=== PATIENT | female | born 1980 | race Hispanic/Latino ===

== ENCOUNTER 2018-04-02 10:56 | Emergency (ER) | payer SELFPAY ==
[~2018-04-02 10:56] MED LIST: HYDR-2132 PO
[2018-04-02] MEDS ORDERED: KETOROLAC TROMETHAMINE 30MG/ML ONE (11:56)
== END 2018-04-02 13:02 | disposition home or self-care (01) ==
LOC: EDH 10:56
DX: M79.631 Pain in right forearm (principal); Z88.6 Allergy status to analgesic agent; Z98.51 Tubal ligation status; Z98.890 Other specified postprocedural states; X50.0XXA Overexertion from strenuous movement or load, initial encounter; Y93.89 Activity, other specified; Y92.89 Other specified places as the place of occurrence of the external cause; Y99.8 Other external cause status
CPT/HCPCS: 29125; 73090; 81025; 96372; 99285; J1885

== ENCOUNTER 2018-12-12 20:38 | Inpatient (IN) | payer MEDICAID, OTHER ==
[~2018-12-12] VITALS: Ht 160 cm; Wt 105.2 kg
[2018-12-12] MEDS ORDERED: KETOROLAC TROMETHAMINE 30MG/ML ONE (22:20)
[2018-12-12] MEDS ORDERED: ONDANSETRON HCL 4 MG/2 ML VIAL ONE (22:20)
[2018-12-12] MEDS ORDERED: SODIUM CHLORIDE 0.9% 1000ML 1,000 ML IV ONE (22:20)
[2018-12-12 22:57] LABS: BASOPHILS % (AUTO) 0.3 % (0.0-5.0); HEMATOCRIT 37.3 % (36-48); LYMPHOCYTES % (AUTO) 5.3 % (21.0-51.0); MEAN CORPUSCULAR HEMOGLOBIN 25.8 pg (27.0-33.0); MEAN CORPUSCULAR HGB CONC 31.8 g/dL (32.0-36.0); MONOCYTES % (AUTO) 6.4 % (3.0-13.0); PLATELET COUNT (AUTO) 357 K/uL (130-400); RED CELL DISTRIBUTION WIDTH 15.2 % (11.0-15.5); WHITE BLOOD COUNT (AUTO) 16.7 K/uL (4.8-10.8)
[2018-12-12 23:01] LABS: APPEARANCE,URINE Clear (CLEAR); BILIRUBIN,URINE Negative (NEGATIVE); COLOR,URINE Yellow (YELLOW); GLUCOSE, URINE (UA) Negative (NEGATIVE); KETONES,URINE Negative (NEGATIVE); LEUKOCYTE ESTERASE ,URINE Negative (NEGATIVE); NITRATE,URINE Negative (NEGATIVE); OCCULT BLOOD,URINE Negative (NEGATIVE); PROTEIN,URINE Negative (NEGATIVE)
[2018-12-12 23:05] LABS: CREATININE 0.6 mg/dL (0.5-1.5); HCG,QUAL RESULT NEGATIVE (NEGATIVE); POTASSIUM 3.6 mmol/L (3.5-5.1)
[2018-12-12 23:09] LABS: ALBUMIN 3.4 g/dL (3.5-5.0); BILIRUBIN,TOTAL 0.3 mg/dL (0.2-1.0); TOTAL PROTEIN, SERUM 7.5 g/dL (6.0-8.3)
[2018-12-13] MEDS ORDERED: ONDANSETRON HCL 4 MG/2 ML VIAL ONE (01:05)
[2018-12-13] MEDS ORDERED: MORPHINE SULFATE 4 MG/1ML SYG ONE (01:05)
[2018-12-13] MEDS ORDERED: ACETAMINOPHEN 325 MG TAB ONE (01:27)
[2018-12-13] MEDS: SODIUM CHLORIDE 0.9% 1000ML 1,000 ML IV SCH ×2 (01:51→12:35)
[2018-12-13] MEDS ORDERED: ACETAMINOPHEN 325 MG TAB PO PRN (02:00)
[2018-12-13] MEDS ORDERED: MORPHINE SULFATE 2 MG/ML 1ML SYG IV PRN (02:00)
[2018-12-13] MEDS ORDERED: ONDANSETRON HCL 4 MG/2 ML VIAL IV PRN (02:00)
[2018-12-13] MEDS ORDERED: SODIUM CHLORIDE 0.9% 1000ML 1,000 ML IV ONE (02:22)
[2018-12-13] MEDS ORDERED: ZOSYN 3.375GM+NS 50ML 50 ML IV ONE (02:23)
[2018-12-13] MEDS ORDERED: LIDOCAINE HCL 2% JELLY 5 ML ONE (03:30)
[2018-12-13 05:30] VITALS: BP 129/73
--- NOTE | 2018-12-13 05:39 | NUR ---
Admission note: Received pt. per wheelchair. AOx3. Can amb indep. Has NGT tube cypriot 16 attached to low intermittent suction for decompression draining a a small amount of whitish to greenish fluid. Fully awake and responsive , but complaining of abd pain. Morphine 2mg IV prn for pain given as ordered. Has an IV site of 20 g to LH with IV of 1L NS at 100 ml/hr - intact and patency checked. Pt. oriented to room and used of call light. Policies and procedures explained. Verbalized understanding.Assessment done. VS checked and recorded. Orders carried out. To consult Dr. Garcia in [place]. Monitored and observed for any unusualities. Cared for and needs attended. Endorsed to next shift accordingly.
[2018-12-13 08:00] VITALS: BP 138/88
[2018-12-13] MEDS: FAMOTIDINE/PF 20 MG/2 ML VIAL IV SCH ×2 (08:49→21:01)
[2018-12-13] MEDS: ZOSYN 3.375GM+NS 50ML 50 ML IV SCH ×2 (08:53→18:43)
[2018-12-13] MEDS ORDERED: ENOXAPARIN SODIUM 30 MG/0.3 ML SQ SCH (09:00)
[2018-12-13 11:00] VITALS: BP 130/89
[2018-12-13] MEDS: KETOROLAC TROMETHAMINE 30MG/ML IM PRN (12:04)
--- NOTE | 2018-12-13 13:00 | NUR ---
KALLIE ESTRADA VISITED WITH PATIENT. POC DISCUSSED. NO NEW ORDERS AT THIS TIME. MEDICATED PER MARS FOR COMPLAINTS OF ABD PAIN. TOLERATING IVF WELL. NO NAUSEA OR VOMITING NOTED. UP AD CORONA. NGT IN PLACE. NO SIGNS OF DISTRESS NOTED AT THIS TIME. CALL LIGHT WITHIN REACH. WILL CONTINUE TO BE OBSERVED. Addendum: 12/13/18 at 1320 by THIERNO FISHER RN RN Amended: Links added.
[2018-12-13] MEDS: MORPHINE SULFATE 2 MG/ML 1ML SYG IV PRN ×2 (13:56→21:02)
[2018-12-13] MEDS ORDERED: PHENOL 177 ML BOTTLE PO PRN (14:00)
[2018-12-13 16:00] VITALS: BP 137/87
--- NOTE | 2018-12-13 16:00 | NUR ---
MD MEETA BATRES VISITED WITH PATIENT. POC DISCUSSED. NEW ORDERS RECEIVED AND CARRIED OUT. PATIENT AWARE. NO QUESTIONS OR CONCERNS VOICED AT THIS TIME. VITALS STABLE.A FEBRILE. BOLUS GIVEN PER MD ORDERS. UP AD CORONA. CALL LIGHT WITHIN REACH. WILL CONTINUE TO BE OBSERVED. Addendum: 12/13/18 at 1911 by THIERNO FISHER RN RN Amended: Links added.
[2018-12-13] MEDS ORDERED: LACTATED RINGERS 1000ML IV SCH (16:15)
[2018-12-13] MEDS: LACTATED RINGERS 1000ML 1,000 ML IV SCH (18:36)
[2018-12-13 20:08] VITALS: BP 140/93
[2018-12-14] VITALS: BP 136/64
[2018-12-14] MEDS: ZOSYN 3.375GM+NS 50ML 50 ML IV SCH ×3 (01:39→17:36)
[2018-12-14] MEDS: MORPHINE SULFATE 2 MG/ML 1ML SYG IV PRN ×3 (01:42→23:21)
[2018-12-14] MEDS: LACTATED RINGERS 1000ML 1,000 ML IV SCH ×4 (01:42→17:36)
[2018-12-14 04:00] VITALS: BP 142/62
[2018-12-14 08:00] VITALS: BP 140/87
[2018-12-14] MEDS: FAMOTIDINE/PF 20 MG/2 ML VIAL IV SCH ×2 (09:25→20:27)
[2018-12-14] MEDS ORDERED: MORPHINE SULFATE 4 MG/1ML SYG ONE (09:27)
[2018-12-14 11:00] VITALS: BP 132/96
[2018-12-14 16:00] VITALS: BP 147/96
[2018-12-14 19:20] VITALS: BP 140/88
[2018-12-15] VITALS (7 sets, daily range): BP systolic 124–150; BP diastolic 65–101
[2018-12-15] MEDS: KETOROLAC TROMETHAMINE 30MG/ML IM PRN ×2 (01:48→11:05)
[2018-12-15] MEDS: LACTATED RINGERS 1000ML 1,000 ML IV SCH ×4 (01:48→20:06)
[2018-12-15] MEDS: ZOSYN 3.375GM+NS 50ML 50 ML IV SCH ×3 (01:48→18:58)
[2018-12-15] MEDS: MORPHINE SULFATE 2 MG/ML 1ML SYG IV PRN ×4 (03:36→22:48)
[2018-12-15 04:34] LABS: HEMATOCRIT 33.3 % (36-48); MEAN CORPUSCULAR HEMOGLOBIN 26.1 pg (27.0-33.0); MEAN CORPUSCULAR HGB CONC 32.5 g/dL (32.0-36.0); MEAN CORPUSCULAR VOLUME 80.2 fL (79-99); PLATELET COUNT (AUTO) 311 K/uL (130-400); RED BLOOD CELL COUNT(AUTO) 4.15 MIL/uL (4.00-5.50); RED CELL DISTRIBUTION WIDTH 15.3 % (11.0-15.5); WHITE BLOOD COUNT (AUTO) 9.6 K/uL (4.8-10.8)
[2018-12-15 04:42] LABS: CREATININE 0.7 mg/dL (0.5-1.5); POTASSIUM 3.7 mmol/L (3.5-5.1)
[2018-12-15] MEDS: FAMOTIDINE/PF 20 MG/2 ML VIAL IV SCH (11:05)
[2018-12-15] MEDS: ENOXAPARIN SODIUM 30 MG/0.3 ML SQ SCH (11:06)
[2018-12-15] MEDS: FAMOTIDINE 20MG TAB 20 MG TAB PO SCH (20:06)
[2018-12-16] MEDS: ZOSYN 3.375GM+NS 50ML 50 ML IV SCH ×2 (02:07→10:17)
[2018-12-16 03:42] VITALS: BP 133/92
[2018-12-16 04:28] LABS: HEMATOCRIT 34.3 % (36-48); MEAN CORPUSCULAR HEMOGLOBIN 25.9 pg (27.0-33.0); MEAN CORPUSCULAR HGB CONC 32.5 g/dL (32.0-36.0); MEAN CORPUSCULAR VOLUME 79.9 fL (79-99); NUCLEATED RED BLOOD CELLS 0.1 % (0.0-0.19); PLATELET COUNT (AUTO) 314 K/uL (130-400); RED CELL DISTRIBUTION WIDTH 15.1 % (11.0-15.5); WHITE BLOOD COUNT (AUTO) 8.3 K/uL (4.8-10.8)
[2018-12-16 04:41] LABS: CREATININE 0.6 mg/dL (0.5-1.5); POTASSIUM 3.3 mmol/L (3.5-5.1)
[2018-12-16] MEDS: MORPHINE SULFATE 2 MG/ML 1ML SYG IV PRN (05:20)
[2018-12-16 07:30] VITALS: BP 131/76
[2018-12-16] MEDS ORDERED: POTASSIUM CHLORIDE 10% ELIXIR 20 MEQ/15 ML UDCUP PO PRN (08:15)
[2018-12-16] MEDS ORDERED: LIDOCAINE HCL-MPF 1% 2ML VIAL IVP PRN (08:15)
[2018-12-16] MEDS ORDERED: POTASSIUM CHLORIDE 20MEQ/100ML 100 ML IV PRN (08:15)
[2018-12-16] MEDS: ENOXAPARIN SODIUM 30 MG/0.3 ML SQ SCH (10:16)
[2018-12-16] MEDS: FAMOTIDINE 20MG TAB 20 MG TAB PO SCH (10:16)
[2018-12-16] MEDS: LACTATED RINGERS 1000ML 1,000 ML IV SCH (10:19)
[2018-12-16] MEDS: KETOROLAC TROMETHAMINE 30MG/ML IM PRN (10:30)
[2018-12-16] MEDS: POTASSIUM CHLORIDE 20 MEQ ERTAB PO PRN ×3 (10:32→16:15)
[2018-12-16 10:37] VITALS: BP 130/71
== END 2018-12-16 16:35 | disposition home or self-care (01) | DRG 389 ==
LOC: EDH 20:38 → EDHIP 20:39 → OBSVTOIN 20:39 → 4BH 12-13 05:43
PROVIDERS: ADMIT Internal Medicine; ATTEND Internal Medicine
PROC: 0D9670Z Drainage of Stomach with Drainage Device, Via Natural or Artificial Opening (ICD-10-PCS; principal; 2018-12-12)
DX: K56.609 Unspecified intestinal obstruction, unspecified as to partial versus complete obstruction (principal); Z68.41 Body mass index [BMI] 40.0-44.9, adult; E66.9 Obesity, unspecified; M19.90 Unspecified osteoarthritis, unspecified site; K52.9 Noninfective gastroenteritis and colitis, unspecified; Z82.0 Family history of epilepsy and other diseases of the nervous system; Z82.3 Family history of stroke; Z82.49 Family history of ischemic heart disease and other diseases of the circulatory system; Z82.5 Family history of asthma and other chronic lower respiratory diseases; Z83.3 Family history of diabetes mellitus
CPT/HCPCS: 36415; 74018; 74177; 80048; 80053; 81003; 81025; 83690; 85025; 85027; 87046; 87177; 87804; G0378; J1650; J1885; J2270; J2405; J2543; J3490; J7030; J7120

== ENCOUNTER 2019-05-14 19:46 | Emergency (ER) | payer MEDICAID ==
[2019-05-14 20:32] LABS: APPEARANCE,URINE Clear (CLEAR); BILIRUBIN,URINE Negative (NEGATIVE); COLOR,URINE Yellow (YELLOW); GLUCOSE, URINE (UA) Negative (NEGATIVE); KETONES,URINE Negative (NEGATIVE); LEUKOCYTE ESTERASE ,URINE Negative (NEGATIVE); NITRATE,URINE Negative (NEGATIVE); OCCULT BLOOD,URINE Negative (NEGATIVE); PH,URINE 6.5 (5.0-8.0); PROTEIN,URINE Negative (NEGATIVE)
[2019-05-14] MEDS ORDERED: METOCLOPRAMIDE 10 MG/2 ML VIAL ONE (20:33)
[2019-05-14] MEDS ORDERED: DiphenhydrAMINE HCL 50 MG/ML VIAL ONE (20:33)
[2019-05-14] MEDS ORDERED: ONDANSETRON HCL 4 MG/2 ML VIAL ONE (20:34)
[2019-05-14] MEDS ORDERED: SODIUM CHLORIDE 0.9% 1000ML 1,000 ML IV ONE (20:34)
[2019-05-14 20:36] LABS: HCG,QUAL RESULT NEGATIVE (NEGATIVE)
[2019-05-14] MEDS ORDERED: KETOROLAC TROMETHAMINE 30MG/ML ONE (20:43)
== END 2019-05-14 21:36 | disposition home or self-care (01) ==
LOC: EDH 19:46
DX: G43.009 Migraine without aura, not intractable, without status migrainosus (principal); F32.9 Major depressive disorder, single episode, unspecified; F41.9 Anxiety disorder, unspecified; Z98.890 Other specified postprocedural states; Z98.51 Tubal ligation status; Z90.49 Acquired absence of other specified parts of digestive tract
CPT/HCPCS: 81003; 81025; 96374; 96375; 99284; J1200; J1885; J2405; J2765; J7030

== ENCOUNTER 2022-01-07 13:37 | Emergency (ER) | payer MEDICAID ==
[~2022-01-07] VITALS: Ht 157.5 cm; Wt 113.4 kg
[2022-01-07 13:39] VITALS: BP 150/93
[2022-01-07 14:32] LABS: EOSINOPHILS % (AUTO) 2.9 % (0.0-8.0); HEMATOCRIT 37.3 % (36-48); LYMPHOCYTES % (AUTO) 22.4 % (21.0-51.0); MEAN CORPUSCULAR HEMOGLOBIN 24.5 pg (27.0-33.0); MEAN CORPUSCULAR HGB CONC 31.4 g/dL (32.0-36.0); MONOCYTES % (AUTO) 12.2 % (3.0-13.0); NEUTROPHILS % (AUTO) 61.1 % (40.0-77.0); PLATELET COUNT (AUTO) 322 K/uL (130-400); RED BLOOD CELL COUNT(AUTO) 4.78 MIL/uL (4.00-5.50); WHITE BLOOD COUNT (AUTO) 6.9 K/uL (4.8-10.8)
[2022-01-07 14:40] LABS: CREATININE 0.8 mg/dL (0.5-1.5); POTASSIUM 3.8 mmol/L (3.5-5.1)
[2022-01-07 14:50] LABS: ALBUMIN 3.5 g/dL (3.5-5.0); BILIRUBIN,TOTAL 0.5 mg/dL (0.2-1.0); TOTAL PROTEIN, SERUM 7.7 g/dL (6.0-8.3)
[2022-01-07] MEDS ORDERED: IBUPROFEN 600 MG TABLET PO ONE (15:30)
[2022-01-07] MEDS ORDERED: BENZONATATE 100 MG CAPSULE PO SCH (15:30)
[2022-01-07 15:50] LABS: APPEARANCE,URINE SL CLOUDY (CLEAR); BILIRUBIN,URINE NEGATIVE (NEGATIVE); COLOR,URINE YELLOW (YELLOW); GLUCOSE, URINE (UA) NEGATIVE (NEGATIVE); KETONES,URINE NEGATIVE (NEGATIVE); LEUKOCYTE ESTERASE ,URINE NEGATIVE (NEGATIVE); NITRATE,URINE NEGATIVE (NEGATIVE); OCCULT BLOOD,URINE NEGATIVE (NEGATIVE); PROTEIN,URINE TRACE mg/dL (NEGATIVE)
[2022-01-07] MEDS ORDERED: BENZ-39 PO (15:52)
[2022-01-07] MEDS ORDERED: CETI10TA57 PO (15:52)
[2022-01-07] MEDS ORDERED: AZIT500T2 PO (15:52)
[2022-01-07] MEDS ORDERED: IBUP-2070 PO (15:52)
[2022-01-07 15:57] LABS: HCG,QUAL RESULT NEGATIVE (NEGATIVE)
[2022-01-07 16:07] LABS: BACTERIA,URINE Few /HPF (None Seen); RBC,URINE 0-1 /HPF (0-1); SQUAMOUS EPITHELIAL CELL,UR Few /HPF (0-2); WBC,URINE 0-1 /HPF (0-1)
[2022-01-07 16:08] LABS: MUCUS,URINE Moderate LPF (None Seen)
== END 2022-01-07 16:26 | disposition home or self-care (01) ==
LOC: EDH 13:37
DX: J06.9 Acute upper respiratory infection, unspecified (principal); Z20.822 Contact with and (suspected) exposure to COVID-19; F41.9 Anxiety disorder, unspecified; F32.A Depression, unspecified; G43.909 Migraine, unspecified, not intractable, without status migrainosus
CPT/HCPCS: 36415; 71045; 80053; 81001; 81025; 84484; 85025; 87635; 87804 ×2; 93005; 99285; C9803

== ENCOUNTER 2022-08-01 18:42 | Emergency (ER) | payer MEDICAID ==
[~2022-08-01] VITALS: Ht 162.6 cm; Wt 112.5 kg
[~2022-08-01 18:42] MED LIST changes: +AZIT500T2 PO; +BENZ-39 PO; +CETI10TA57 PO; -HYDR-2132 PO; +IBUP-2070 PO
[2022-08-01 18:58] LABS: BASOPHILS % (AUTO) 0.5 % (0.0-5.0); EOSINOPHILS % (AUTO) 2.5 % (0.0-8.0); HEMATOCRIT 33.7 % (36-48); LYMPHOCYTES % (AUTO) 20.2 % (21.0-51.0); MEAN CORPUSCULAR HEMOGLOBIN 22.9 pg (27.0-33.0); MEAN CORPUSCULAR HGB CONC 31.2 g/dL (32.0-36.0); MEAN CORPUSCULAR VOLUME 73.6 fL (79-99); MONOCYTES % (AUTO) 6.7 % (3.0-13.0); NEUTROPHILS % (AUTO) 69.6 % (40.0-77.0); PLATELET COUNT (AUTO) 386 K/uL (130-400); RED BLOOD CELL COUNT(AUTO) 4.58 MIL/uL (4.00-5.50); RED CELL DISTRIBUTION WIDTH 17.3 % (11.0-15.5); WHITE BLOOD COUNT (AUTO) 13.7 K/uL (4.8-10.8)
[2022-08-01 19:09] LABS: CREATININE 0.8 mg/dL (0.5-1.5); POTASSIUM 3.4 mmol/L (3.5-5.1)
[2022-08-01 19:18] LABS: ALBUMIN 3.1 g/dL (3.5-5.0); TOTAL PROTEIN, SERUM 7.2 g/dL (6.0-8.3)
[2022-08-01] MEDS ORDERED: 0.9%NACL 1000ML 1,000 ML IV ONE (21:30)
[2022-08-01] MEDS ORDERED: CEFTRIAXONE 1G VIAL IVP ONE (21:30)
[2022-08-01 22:41] LABS: APPEARANCE,URINE CLEAR (CLEAR); BILIRUBIN,URINE NEGATIVE (NEGATIVE); COLOR,URINE YELLOW (YELLOW); GLUCOSE, URINE (UA) NEGATIVE (NEGATIVE); KETONES,URINE NEGATIVE (NEGATIVE); LEUKOCYTE ESTERASE ,URINE NEGATIVE Leu/uL (NEGATIVE); NITRATE,URINE NEGATIVE (NEGATIVE); OCCULT BLOOD,URINE NEGATIVE (NEGATIVE); PROTEIN,URINE 10 mg/dL (NEGATIVE); UROBILINOGEN,URINE 3 mg/dL (0.2-1.0)
[2022-08-01 22:48] LABS: MUCUS,URINE MOD LPF (None Seen); RBC,URINE 0-1 /HPF (0-1); SQUAMOUS EPITHELIAL CELL,UR RARE /HPF (0-2)
[2022-08-01 23:27] VITALS: BP 112/65
== END 2022-08-01 23:28 | disposition home or self-care (01) ==
LOC: EDH 18:42
DX: M94.0 Chondrocostal junction syndrome [Tietze] (principal); F41.9 Anxiety disorder, unspecified; G43.909 Migraine, unspecified, not intractable, without status migrainosus; F32.A Depression, unspecified; Z79.1 Long term (current) use of non-steroidal anti-inflammatories (NSAID); Z90.49 Acquired absence of other specified parts of digestive tract
CPT/HCPCS: 99285; 96374; 71045; 96361; 84484; 80053; 85025; 81001; 36415; 93005; J7030; J0696

== ENCOUNTER 2023-03-20 18:06 | Emergency (ER) | payer MEDICAID ==
[~2023-03-20] VITALS: Ht 162.6 cm; Wt 108.0 kg
[2023-03-20 18:08] VITALS: BP 140/89
[2023-03-20 18:57] LABS: BASOPHILS % (AUTO) 0.6 % (0.0-5.0); EOSINOPHILS % (AUTO) 2.6 % (0.0-8.0); HEMATOCRIT 33.9 % (36-48); LYMPHOCYTES % (AUTO) 28.3 % (21.0-51.0); MEAN CORPUSCULAR HEMOGLOBIN 23.1 pg (27.0-33.0); MEAN CORPUSCULAR HGB CONC 30.4 g/dL (32.0-36.0); MONOCYTES % (AUTO) 7.5 % (3.0-13.0); NEUTROPHILS % (AUTO) 60.7 % (40.0-77.0); PLATELET COUNT (AUTO) 372 K/uL (130-400); RED BLOOD CELL COUNT(AUTO) 4.46 MIL/uL (4.00-5.50); RED CELL DISTRIBUTION WIDTH 17.5 % (11.0-15.5); WHITE BLOOD COUNT (AUTO) 10.7 K/uL (4.8-10.8)
[2023-03-20 19:06] LABS: CREATININE 0.7 mg/dL (0.5-1.5); POTASSIUM 3.8 mmol/L (3.5-5.1)
[2023-03-20 19:11] LABS: ALBUMIN 2.7 g/dL (3.5-5.0); TOTAL PROTEIN, SERUM 7.7 g/dL (6.0-8.3)
[2023-03-20 19:50] LABS: APPEARANCE,URINE CLEAR (CLEAR); BILIRUBIN,URINE NEGATIVE (NEGATIVE); COLOR,URINE YELLOW (YELLOW); GLUCOSE, URINE (UA) NEGATIVE (NEGATIVE); KETONES,URINE 5 mg/dL (NEGATIVE); LEUKOCYTE ESTERASE ,URINE 250 Leu/uL (NEGATIVE); NITRATE,URINE NEGATIVE (NEGATIVE); OCCULT BLOOD,URINE LARGE (NEGATIVE); PH,URINE 5.5 (5.0-8.0); PROTEIN,URINE 20 mg/dL (NEGATIVE); UROBILINOGEN,URINE 0.2 mg/dL (0.2-1.0)
[2023-03-20 19:57] LABS: BACTERIA,URINE RARE /HPF (None Seen); MUCUS,URINE RARE LPF (None Seen); SQUAMOUS EPITHELIAL CELL,UR RARE /HPF (0-2)
[2023-03-20] MEDS ORDERED: ONDANSETRON ODT 4MG TAB ONE (20:00)
[2023-03-20] MEDS ORDERED: MORPHINE 4 MG SYG IVP ONE (20:00)
[2023-03-20] MEDS ORDERED: ONDANSETRON 4MG INJ IVP ONE (20:00)
[2023-03-20] MEDS ORDERED: BACL10TA PO (20:51)
[2023-03-20] MEDS ORDERED: NAPR-1180 PO (20:51)
== END 2023-03-20 21:04 | disposition home or self-care (01) ==
LOC: EDH 18:06
DX: S39.012A Strain of muscle, fascia and tendon of lower back, initial encounter (principal); G43.909 Migraine, unspecified, not intractable, without status migrainosus; Z98.890 Other specified postprocedural states; X50.0XXA Overexertion from strenuous movement or load, initial encounter; Y93.89 Activity, other specified; Y92.89 Other specified places as the place of occurrence of the external cause; Y99.8 Other external cause status
CPT/HCPCS: 99284; 96374; 96375; 80053; 85025; 87088; 81001; 81025; 36415; 72100; J2270

== ENCOUNTER 2024-05-30 19:11 | Emergency (ER) | payer MEDICAID, OTHER ==
[~2024-05-30] VITALS: Ht 162.6 cm; Wt 107.0 kg
[~2024-05-30 19:11] MED LIST changes: +BACL10TA PO; +NAPR-1180 PO
[2024-05-30 19:41] LABS: APPEARANCE,URINE CLEAR (CLEAR); BILIRUBIN,URINE NEGATIVE (NEGATIVE); COLOR,URINE LIGHT-YELLOW (YELLOW); GLUCOSE, URINE (UA) NEGATIVE (NEGATIVE); KETONES,URINE NEGATIVE (NEGATIVE); LEUKOCYTE ESTERASE ,URINE NEGATIVE Leu/uL (NEGATIVE); NITRATE,URINE NEGATIVE (NEGATIVE); OCCULT BLOOD,URINE NEGATIVE (NEGATIVE); PROTEIN,URINE NEGATIVE (NEGATIVE); UROBILINOGEN,URINE 0.2 mg/dL (0.2-1.0)
[2024-05-30 19:46] LABS: ADD UA MICROSCOPIC NO
[2024-05-30 20:08] LABS: BASOPHILS # (AUTO) 0.06 K/uL (0.00-0.20); BASOPHILS % (AUTO) 0.5 % (0.0-5.0); EOSINOPHILS # (AUTO) 0.17 K/uL (0.00-0.70); EOSINOPHILS % (AUTO) 1.4 % (0.0-8.0); HEMATOCRIT 34.9 % (36-48); IMMATURE GRANULOCYTE ABSOLUTE 0.04 K/uL (0-1); LYMPHOCYTES # (AUTO) 2.4 K/uL (1.0-4.8); LYMPHOCYTES % (AUTO) 20.6 % (21.0-51.0); MEAN CORPUSCULAR HEMOGLOBIN 23.8 pg (27.0-33.0); MEAN CORPUSCULAR HGB CONC 31.8 g/dL (32.0-36.0); MEAN CORPUSCULAR VOLUME 74.9 fL (79-99); MONOCYTES # (AUTO) 0.9 K/uL (0.1-1.0); MONOCYTES % (AUTO) 7.8 % (3.0-13.0); NEUTROPHILS # (AUTO) 8.2 K/uL (1.8-7.7); NEUTROPHILS % (AUTO) 69.4 % (40.0-77.0); PLATELET COUNT (AUTO) 403 K/uL (130-400); RED BLOOD CELL COUNT(AUTO) 4.66 MIL/uL (4.00-5.50); RED CELL DISTRIBUTION WIDTH 17.5 % (11.0-15.5); WHITE BLOOD COUNT (AUTO) 11.9 K/uL (4.8-10.8)
[2024-05-30 20:18] LABS: CREATININE 0.7 mg/dL (0.5-1.0); POTASSIUM 3.6 mmol/L (3.5-5.1)
[2024-05-30 20:26] LABS: ALBUMIN 3.3 g/dL (3.5-5.0); BILIRUBIN,TOTAL 0.4 mg/dL (0.2-1.0); TOTAL PROTEIN, SERUM 7.8 g/dL (6.0-8.3)
[2024-05-30 20:31] LABS: INFLUENZA TYPE A Negative For Type A (NEGATIVE); INFLUENZA TYPE B Negative For Type B (NEGATIVE)
[2024-05-30] MEDS: ONDANSETRON 4MG INJ IVP ONE (20:51)
[2024-05-30] MEDS: MORPHINE 4 MG SYG IVP ONE (20:51)
[2024-05-30] MEDS: LORAZEPAM 2 MG/ML 1 ML VIAL IVP ONE (21:27)
[2024-05-30 22:42] VITALS: BP 159/98; PULSE 75; RESP 16; O2SAT 96
[2024-05-30] MEDS: LACTULOSE 20 GM/30 ML UDCUP PO ONE (22:45)
[2024-05-30] MEDS ORDERED: GOLY4L PO (23:01)
[2024-05-30] MEDS ORDERED: HYDR25SU7 RC (23:01)
== END 2024-05-30 23:11 | disposition home or self-care (01) ==
LOC: EDH 19:11
DX: K59.00 Constipation, unspecified (principal); E86.0 Dehydration; K64.8 Other hemorrhoids; F41.9 Anxiety disorder, unspecified; F32.A Depression, unspecified; Z90.49 Acquired absence of other specified parts of digestive tract
CPT/HCPCS: 99285; 74176; 96374; 96375; 80053; 83690; 85025; 87804 ×2; 81003; 81025; 36415; J2405; J2060; J2270

== ENCOUNTER 2025-03-11 13:48 | Emergency (ER) | payer SELFPAY ==
[~2025-03-11] VITALS: Ht 162.6 cm; Wt 103.4 kg
[~2025-03-11 13:48] MED LIST changes: +GOLY4L PO; +HYDR25SU7 RC
[2025-03-11] MEDS: ondanSETRON 4MG INJ IVP STA (14:09)
[2025-03-11] MEDS: ketOROlac 15MG/ML VIAL (15MG/ML) IV STA (14:09)
[2025-03-11] MEDS: 0.9%NACL 1000ML 1,000 ML IV STA (14:09)
[2025-03-11] MEDS: morPHINE 2 MG SYG IVP STA (14:10)
[2025-03-11 14:11] LABS: BASOPHILS # (AUTO) 0.07 K/uL (0.00-0.20); BASOPHILS % (AUTO) 0.7 % (0.0-5.0); EOSINOPHILS % (AUTO) 2.1 % (0.0-8.0); HEMATOCRIT 35.1 % (36-48); IMMATURE GRANULOCYTE ABSOLUTE 0.03 K/uL (0-1); LYMPHOCYTES # (AUTO) 2.6 K/uL (1.0-4.8); LYMPHOCYTES % (AUTO) 26.8 % (21.0-51.0); MEAN CORPUSCULAR HEMOGLOBIN 23.1 pg (27.0-33.0); MEAN CORPUSCULAR HGB CONC 31.1 g/dL (32.0-36.0); MEAN CORPUSCULAR VOLUME 74.4 fL (79-99); MONOCYTES # (AUTO) 0.8 K/uL (0.1-1.0); MONOCYTES % (AUTO) 8.7 % (3.0-13.0); NEUTROPHILS # (AUTO) 5.9 K/uL (1.8-7.7); NEUTROPHILS % (AUTO) 61.4 % (40.0-77.0); PLATELET COUNT (AUTO) 437 K/uL (130-400); RED BLOOD CELL COUNT(AUTO) 4.72 MIL/uL (4.00-5.50); RED CELL DISTRIBUTION WIDTH 17.8 % (11.0-15.5); WHITE BLOOD COUNT (AUTO) 9.6 K/uL (4.8-10.8)
[2025-03-11 15:11] LABS: CREATININE 0.7 mg/dL (0.5-1.0); POTASSIUM 3.4 mmol/L (3.5-5.1)
--- NOTE | 2025-03-11 16:27 | HMCIMG ---
Exam Type: CT ABDOMEN/PELVIS W/O CONTRAST Clinical Information: left flank pain Comparison: None CT Dose Index (CTDI): 10.20 mGy Dose Length Product (DLP): 530.00 total mGy-cm PROTOCOL: Routine noncontrast helical scanning of the abdomen and pelvis was performed at 5mm collimation. Findings: No evidence of nephro or ureterolithiasis is found. No hydronephrosis or ureteral dilatation is seen. The lung bases are clear. The stomach is unremarkable. It shows no wall thickening. No gross ulceration is seen. It is not overly distended. There are no surrounding inflammatory changes. No wall lesions are identified to suggest cancer. The spleen is unremarkable. It is not enlarged. The pancreas shows normal anatomy. It is not fatty replaced. It shows no lesions. The pancreatic duct is not dilated. The gallbladder is surgically absent. The adrenal glands are unremarkable. There is no enlargement. No lesions are noted. The liver is unremarkable. It shows no focal masses. The appendix is unremarkable. It shows no evidence of inflammation. No appendicolith is seen. The small bowel is unremarkable. There is no evidence of dilatation to suggest obstruction. No evidence of adynamic ileus is seen. There is no small bowel wall thickening to suggest enteritis. There is diverticulosis. There is no evidence of acute inflammation to suggest diverticulitis. The colon is otherwise unremarkable. The urinary bladder is unremarkable. There is no wall thickening to suggest tumor or inflammation. There are no intraluminal calculi. There are no diverticula. There is no evidence of chronic bladder outlet obstruction. There is no evidence of urinary bladder distention to suggest urinary retention. The other pelvic structures are unremarkable. The bony and vascular structures are unremarkable for the patient's age. IMPRESSION: NO RENAL STONES. NO ACUTE PATHOLOGY OR INFLAMMATION SEEN. Diverticulosis. Status post cholecystectomy. This study was performed using dose reduction techniques to include automated exposure control and/or adjustment of the mA and/or kV according to patient size.
[2025-03-11] MEDS: morPHINE 4 MG SYG IVP SCH (17:06)
[2025-03-11 18:06] LABS: APPEARANCE,URINE CLOUDY (CLEAR); BILIRUBIN,URINE NEGATIVE (NEGATIVE); COLOR,URINE LIGHT-YELLOW (YELLOW); GLUCOSE, URINE (UA) NEGATIVE (NEGATIVE); KETONES,URINE 5 mg/dL (NEGATIVE); LEUKOCYTE ESTERASE ,URINE NEGATIVE Leu/uL (NEGATIVE); NITRATE,URINE NEGATIVE (NEGATIVE); OCCULT BLOOD,URINE NEGATIVE (NEGATIVE); PROTEIN,URINE 10 mg/dL (NEGATIVE); UROBILINOGEN,URINE 0.2 mg/dL (0.2-1.0)
[2025-03-11 18:10] LABS: ADD UA MICROSCOPIC YES
[2025-03-11 18:12] LABS: BACTERIA,URINE RARE /HPF (None Seen); MUCUS,URINE MANY LPF (None Seen); SQUAMOUS EPITHELIAL CELL,UR FEW /HPF (0-2)
[2025-03-11] MEDS ORDERED: GOLY4L PO (18:20)
--- NOTE | 2025-03-11 18:21 | ERN ---
ED Note History of Present Illness Stated Complaint: FLANK PAIN Chief Complaint: Flank Pain Time Seen by MD: 13:52 Time Seen by Midlevel: 13:55 Dictation: 44-year-old female coming in complaining of left flank pain. Patient states she has a history of diverticulitis. Patient states this has been going on for two weeks at worsening today. Patient states thought it was a UTI and was taking azo. Denies having any fever, vomiting or diarrhea. Allergies: Coded Allergies: No Known Drug Allergies (Verified Allergy, Severe, 09/07/15) Home Meds Active Scripts Peg 3350/Na Sulf,Bicarb,Cl/KCl (Golytely/Colyte Soln) 236-22.74G Soln, 0 PO AD, #4000 ML 0 Refills Take according to instructions on printed sheet Prov:VICTORINA GRAVES NP 03/11/25 Hydrocortisone Acetate (Hydrocortisone Acetate) 25 Mg Supp.rect, 25 MG RC BID for 14 Days, #14 EA Prov:JULIA DOMINGUEZ NP 05/30/24 Peg 3350/Na Sulf,Bicarb,Cl/KCl (Golytely/Colyte Soln) 236-22.74G Soln, 4000 ML PO AD, #1 ML MIXED BOTTLE DIRECTED, DRINK ONE CUP EVERY 10 MINUTES UNTIL STOOLS ARE CLEAR. Prov:JULIA DOMINGUEZ HOUSING INSPECTOR 05/30/24 Baclofen (Baclofen) 10 Mg Tablet, 10 MG PO DAILYDINNER for pain, #10 TAB Prov:WALLY KILGORE PAC 03/20/23 Naproxen (Naprosyn) 500 Mg Tablet, 500 MG PO BIDPC for pain for 10 Days, #20 TAB 0 Refills Prov:WALLY KILGORE PAC 03/20/23 Cetirizine HCl (Cetirizine HCl) 10 Mg Tablet, 10 MG PO DAILY, #30 TAB Prov:JOHNNY GOLDMAN BOOK SORTER 01/07/22 Ibuprofen (Ibuprofen) 600 Mg Tablet, 600 MG PO Q6H PRN for PAIN, #15 TAB Prov:JOHNNY GOLDMANP 01/07/22 Benzonatate (Tessalon Perles) 100 Mg Cap, 100 MG PO TID, #15 CAP Prov:JOHNNY GOLDMANP 01/07/22 Azithromycin (Zithromax Tri-Zhang) 500 Mg Tablet, 500 MG PO DAILY, #5 TAB Prov:JOHNNY GOLDMAN BOOK SORTER 01/07/22 Past Medical History Past Medical History: Anxiety, Diverticulitis Surgical History: Cholecystectomy, BTL, Surgical History Other: RT ARM Social History: Negative, Lives with family LMP: March 07, 2025 Review of System Dictation Constitutional: Negative for fever,chills, and weight loss Eyes: Negative for injury, pain,redness, and discharge ENT: Negative for injury,pain or swelling Cardiovascular: Negative for chest pain, palpitations, and edema Respiratory: Negative for shortness of breath, cough, and wheezing, Abdomen/GI: Negative for abdominal pain, nausea, vomiting, diarrhea, and constipation Back: Negative for injury and pain : Negative for injury, bleeding and discharge, left flank pain MS/Extremity: Negative for injury and deformity Skin: Negative for rash, and discoloration Neuro: Negative for headache, weakness, numbness, tingling, and seizure Psych: Negative for suicide ideation, homicidal ideation, and hallucinations Review of Systems: was completed Initial Vital Sign VS Vital Signs Date Time Temp Pulse Resp B/P (MAP) Pulse Ox O2 Delivery O2 Flow Rate FiO2 03/11/25 13:55 99.1 86 16 180/111 98 Room Air 0 03/11/25 14:28 21 Physical Exam Dictation General: awake, alert, NAD Head/Face: Normocephalic, atraumatic Eyes: PERRL, EOMI, vision at baseline ENT: oral cavity clear, TMs clear, no signs of infection Neck: Trachea midline, supple, no nuchal rigidity Cardiovascular: RRR, normal S1/S2, No MRGs, no JVD Respiratory: CTAB, no respiratory distress, No rales or wheezes Abdomen: Soft, non-tender, non-distended, normal bowel sounds, no guarding or rebound. Left CVA tenderness. Skin: Warm, dry, normal turgor, no rash MS/Extremity: Pulses equal, no cyanosis, neurovascular intact, FROM Neuro: COAx4, GCS 15, strength 5/5, CN 2-12 intact, normal cerebellar exam, normal gait, Psych: Normal behavior, mood, and affect normal Results (Laboratory/Radiology) Laboratory/Radiology Laboratory Tests Test 03/11/25 14:05 03/11/25 16:56 White Blood Count 9.6 K/uL (4.8-10.8) Red Blood Count 4.72 MIL/uL (4.00-5.50) Hemoglobin 10.9 g/dL (12.0-16.0) L Hematocrit 35.1 % (36-48) L Mean Corpuscular Volume 74.4 fL (79-99) L Mean Corpuscular Hemoglobin 23.1 pg (27.0-33.0) L Mean Corpuscular Hemoglobin Concent 31.1 g/dL (32.0-36.0) L Red Cell Distribution Width 17.8 % (11.0-15.5) H Platelet Count 437 K/uL (130-400) H Mean Platelet Volume 10.2 fL (7.5-10.5) Immature Granulocyte % (Auto) 0.3 % (0-1) Neutrophils (%) (Auto) 61.4 % (40.0-77.0) Lymphocytes (%) (Auto) 26.8 % (21.0-51.0) Monocytes (%) (Auto) 8.7 % (3.0-13.0) Eosinophils (%) (Auto) 2.1 % (0.0-8.0) Basophils (%) (Auto) 0.7 % (0.0-5.0) Neutrophils # (Auto) 5.9 K/uL (1.8-7.7) Lymphocytes # (Auto) 2.6 K/uL (1.0-4.8) Monocytes # (Auto) 0.8 K/uL (0.1-1.0) Eosinophils # (Auto) 0.20 K/uL (0.00-0.70) Basophils # (Auto) 0.07 K/uL (0.00-0.20) Absolute Immature Granulocyte (auto 0.03 K/uL (0-1) Nucleated Red Blood Cells 0.0 % (0.0-0.19) Red Blood Cell Morphology See comments Sodium Level 141 mmol/L (136-145) Potassium Level 3.4 mmol/L (3.5-5.1) L Chloride Level 105 mmol/L (101-111) Carbon Dioxide Level 29 mmol/L (21-32) Blood Urea Nitrogen 13 mg/dL (7-18) Creatinine 0.7 mg/dL (0.5-1.0) Glomerular Filtration Rate Calc 110 mL/min (>90) Random Glucose 108 mg/dL (70-105) H Total Calcium 8.9 mg/dL (8.5-10.1) Human Chorionic Gonadotropin, Quant 0 mIU/mL (0-5) Urine Color LIGHT-YELLOW (YELLOW) Urine Appearance CLOUDY (CLEAR) H Urine pH 6.0 (5.0-8.0) Urine Specific [place] 1.021 (1.001-1.031) Urine Protein 10 mg/dL (NEGATIVE) H Urine Glucose (UA) NEGATIVE mg/dL (NEGATIVE) Urine Ketones 5 mg/dL (NEGATIVE) H Urine Occult Blood NEGATIVE (NEGATIVE) Urine Nitrate NEGATIVE (NEGATIVE) Urine Bilirubin NEGATIVE mg/dL (NEGATIVE) Urine Urobilinogen 0.2 mg/dL (0.2-1.0) Urine Leukocyte Esterase NEGATIVE Mian/uL Urine RBC 2-5 /HPF (0-1) H Urine WBC 2-5 /HPF (0-1) H Urine Squamous Epithelial Cells FEW /HPF (0-2) Urine Bacteria RARE /HPF (None Seen) Labs Reviewed?: Yes CT Scan Comment: [address] [address] IMAGING REPORT Signed PATIENT: PHOEBE BUSTAMANTE MR#: [id number] : 1980 SEX: F AGE: 44 LOCATION: [facility] ORDER 1522 STATUS: [facility] REPORT#: [id number] SERVICE 1521 REASON: left flank pain ORDERING PHYSICIAN: VICTORINA GRAVES NP PROCEDURE: ABD PEL WO - CT ABDOMEN/PELVIS W/O CONTRAST Exam Type: CT ABDOMEN/PELVIS W/O CONTRAST Clinical Information: left flank pain Comparison: None CT Dose Index (CTDI): 10.20 mGy Dose Length Product (DLP): 530.00 total mGy-cm PROTOCOL: Routine noncontrast helical scanning of the abdomen and pelvis was performed at 5mm collimation. Findings: No evidence of nephro or ureterolithiasis is found. No hydronephrosis or ureteral dilatation is seen. The lung bases are clear. The stomach is unremarkable. It shows no wall thickening. No gross ulceration is seen. It is not overly distended. There are no surrounding inflammatory changes. No wall lesions are identified to suggest cancer. The spleen is unremarkable. It is not enlarged. The pancreas shows normal anatomy. It is not fatty replaced. It shows no lesions. The pancreatic duct is not dilated. The gallbladder is surgically absent. The adrenal glands are unremarkable. There is no enlargement. No lesions are noted. The liver is unremarkable. It shows no focal masses. The appendix is unremarkable. It shows no evidence of inflammation. No appendicolith is seen. The small bowel is unremarkable. There is no evidence of dilatation to suggest obstruction. No evidence of adynamic ileus is seen. There is no small bowel wall thickening to suggest enteritis. There is diverticulosis. There is no evidence of acute inflammation to suggest diverticulitis. The colon is otherwise unremarkable. The urinary bladder is unremarkable. There is no wall thickening to suggest tumor or inflammation. There are no intraluminal calculi. There are no diverticula. There is no evidence of chronic bladder outlet obstruction. There is no evidence of urinary bladder distention to suggest urinary retention. The other pelvic structures are unremarkable. The bony and vascular structures are unremarkable for the patient's age. IMPRESSION: NO RENAL STONES. NO ACUTE PATHOLOGY OR INFLAMMATION SEEN. Diverticulosis. Status post cholecystectomy. This study was performed using dose reduction techniques to include automated exposure control and/or adjustment of the mA and/or kV according to patient size. DICTATED BY: YOU SHELBY MD DATE: 03/11/251623 ELECTRONICALLY SIGNED BY: YOU SHELBY MD DATE: 03/11/251626 ED Course ED Course Orders Procedure Category Date Status Time Cbc With Differential LAB 03/11/25 Complete 13:55 Basic Metabolic Panel LAB 03/11/25 Complete 13:55 Urinalysis Profile LAB 03/11/25 Complete 13:55 Hcg,Quantitative LAB 03/11/25 Complete 13:55 0.9%Nacl 1000ml (Ns PHA 03/11/25 Complete 1000ml) 13:55 Ondansetron 4mg Inj PHA 03/11/25 Complete (Zofran 4mg Inj) 13:55 Ketorolac PHA 03/11/25 Complete Tromethamine 15mg/Ml 13:55 Morphine 2mg Syg PHA 03/11/25 Complete (Morphine 2mg Syg) 13:55 Ct Abdomen/Pelvis W/O CT 03/11/25 Resulted Contrast 15:21 Morphine 4mg Syg PHA 03/11/25 Complete (Morphine 4mg Syg) 16:39 Current Medications Medications (Trade) Dose Ordered Sig/Angel Route PRN Reason Start Time Stop Time Status Last Admin Dose Admin Ketorolac Tromethamine (toRADol) 15 mg ONCE STAT IV 03/11/25 13:55 03/11/25 14:02 DC 03/11/25 14:09 Morphine Sulfate (morPHINE 2MG SYG) 2 mg ONCE STAT IVP 03/11/25 13:55 03/11/25 14:02 DC 03/11/25 14:10 Morphine Sulfate (morPHINE 4MG SYG) 4 mg ONCE IVP 03/11/25 16:39 03/11/25 19:14 DC 03/11/25 17:06 Ondansetron HCl (zoFRAN 4MG INJ) 4 mg ONCE STAT IVP 03/11/25 13:55 03/11/25 14:02 DC 03/11/25 14:09 Sodium Chloride 1,000 ml @ 1,000 mls/hr Q1H STAT IV 03/11/25 13:55 03/11/25 14:54 DC 03/11/25 14:09 Vital Signs Date Time Temp Pulse Resp B/P (MAP) Pulse Ox O2 Delivery O2 Flow Rate FiO2 03/11/25 19:00 98.8 75 18 159/85 98 Room Air* 0 03/11/25 17:30 98.8 74 18 155/87 98 Room Air* 0 03/11/25 16:30 98.8 74 18 161/69 98 Room Air* 0 03/11/25 15:20 99.1 78 18 190/100 98 Room Air* 0 03/11/25 14:28 78 18 177/111 99 Room Air* 0 03/11/25 13:55 99.1 86 16 180/111 98 Room Air 0 Medical Decision Making MDM MDM: 44-year-old female coming in complaining of left flank pain. Patient states she has a history of diverticulitis. Patient states this has been going on for two weeks at worsening today. Patient states thought it was a UTI and was taking azo. Denies having any fever, vomiting or diarrhea. Blood work is unremarkable. There is no urinary tract infection, no leukocytosis, no anemia, kidney functions are within normal range. CT scan shows no acute finding. The time of reassessment patient states he feels better and mentioned that she has been having trouble having a bowel movement and took a suppository laxative last night. Discussed with the patient that I will give her pain medication and gave her GoLYTELY take it home to see if this will help her pain. Educated on signs and symptoms of when to return back to the emergency room. Patient verbalized understanding, answered all questions.Case was discussed with ER MD, agrees with plan of care. Differential diagnosis: Nephrolithiasis, diverticulitis, Rationale: Tests considered and ordered secondary to shared decision making include: Previous outside records reviewed: Old ER visits. Risk of complication and/or morbidity or mortality of patient management: None Medications-Per medication reconciliation Need for hospitalization: Patient does not meet criteria for hospitalization. Need for emergency major/minor surgery: No There are no social concerns with this patient. Prescription drug management Prescriptions will include symptomatic care Patient's prior external medical records from other ER visits were reviewed by me as indicated. Prior testing and results from previous visits were reviewed. Prior tests were taken into account with medical decision making and resource utilization, independent historian/historians were used to obtain complete medical history. I independently interpreted the test that were performed, results were reviewed by me and considered findings on radiology if ordered. Medical management and examination interpretation discussions were had by me with other qualified healthcare professionals as indicated for the patient's c are. DX & DISP Disposition: Discharge Departure Impression: Primary Impression: Acute constipation Condition: Stable Scripts Peg 3350/Na Sulf,Bicarb,Cl/KCl (Golytely/Colyte Soln) 236-22.74G Soln 0 PO AD, #4000 ML 0 Refills Take according to instructions on printed sheet Prov: VICTORINA GRAVES HOUSING INSPECTOR 03/11/25 Referrals: [place] [facility] (PCP) Time of Disposition: 18:20 I have reviewed the case, and I agree with, Diagnosis and Plan I performed a substantive portion of the visit. I have reviewed and personally made and approve the management plan that is documented in the notes by myself with MATA/resident. I acknowledged full responsibility for the patient's management plan. VICTORINA GRAVES NP March 11, 2025 18:21 JOSE BEARD DO March 12, 2025 07:23
[2025-03-11 19:00] VITALS: BP 159/85; PULSE 75; RESP 18; TEMP 98.7; O2SAT 98
== END 2025-03-11 19:14 | disposition home or self-care (01) ==
LOC: EDH 13:48
DX: K59.00 Constipation, unspecified (principal); R10.2 Pelvic and perineal pain; Z90.49 Acquired absence of other specified parts of digestive tract; Z98.51 Tubal ligation status
CPT/HCPCS: 99285; 74176; 96374; 96375; 96361; 80048; 84702; 85025; 81001; 36415; 96376; J1885; J2270 ×2; J7030; J2405

== ENCOUNTER 2025-04-18 14:34 | Emergency (ER) | payer MEDICAID ==
[~2025-04-18] VITALS: Ht 162.6 cm; Wt 104.3 kg
[2025-04-18] MEDS ORDERED: DOXY100C5 PO (15:25)
--- NOTE | 2025-04-18 15:26 | ERN ---
ED Note History of Present Illness Stated Complaint: RT SIDE EAR ACHE SPREAD TO RT SIDE OF HEAD Chief Complaint: Earache Time Seen by MD: 14:44 Dictation: 44-year-old female presenting to the emergency department with a right ear pain and sinus pain patient was seen a few days ago with a primary care doctor and placed on a Z-Zhang for right ear infection but reports that she feels like all her sinuses were now aching and she is having worse congestion and pain. Patient denies any vision changes nausea vomiting no chest pain or shortness of breath. Allergies: Coded Allergies: No Known Drug Allergies (Verified Allergy, Severe, 09/07/15) Home Meds Active Scripts Peg 3350/Na Sulf,Bicarb,Cl/KCl (Golytely/Colyte Soln) 236-22.74G Soln, 0 PO AD, #4000 ML 0 Refills Take according to instructions on printed sheet Prov:VICTORINA GRAVES NP 03/11/25 Hydrocortisone Acetate (Hydrocortisone Acetate) 25 Mg Supp.rect, 25 MG RC BID for 14 Days, #14 EA Prov:JULIA DOMINGUEZ NP 05/30/24 Peg 3350/Na Sulf,Bicarb,Cl/KCl (Golytely/Colyte Soln) 236-22.74G Soln, 4000 ML PO AD, #1 ML MIXED BOTTLE DIRECTED, DRINK ONE CUP EVERY 10 MINUTES UNTIL STOOLS ARE CLEAR. Prov:JULIA DOMINGUEZ YARDER OPERATOR 05/30/24 Baclofen (Baclofen) 10 Mg Tablet, 10 MG PO DAILYDINNER for pain, #10 TAB Prov:WALLY KILGORE PAC 03/20/23 Naproxen (Naprosyn) 500 Mg Tablet, 500 MG PO BIDPC for pain for 10 Days, #20 TAB 0 Refills Prov:WALLY KILGORE PAC 03/20/23 Cetirizine HCl (Cetirizine HCl) 10 Mg Tablet, 10 MG PO DAILY, #30 TAB Prov:FITTINGJOHNNYP 01/07/22 Ibuprofen (Ibuprofen) 600 Mg Tablet, 600 MG PO Q6H PRN for PAIN, #15 TAB Prov:JOHNNY GOLDMANP 01/07/22 Benzonatate (Tessalon Perles) 100 Mg Cap, 100 MG PO TID, #15 CAP Prov:FITTINGJOHNNYP 01/07/22 Azithromycin (Zithromax Tri-Zhang) 500 Mg Tablet, 500 MG PO DAILY, #5 TAB Prov:JOHNNY GOLDMAN SIGN PAINTER HELPER 01/07/22 Past Medical History Past Medical History: No Pertinent History Surgical History: Cholecystectomy, Other, BTL, Surgical History Other: right arm, d&cx2 Social History: Negative, Lives with family Review of System Dictation Constitutional: Negative for fever,chills, and weight loss Eyes: Negative for injury, pain,redness, and discharge ENT: Per HPI Cardiovascular: Negative for chest pain, palpitations, and edema Respiratory: Negative for shortness of breath, cough, and wheezing, Abdomen/GI: Negative for abdominal pain, nausea, vomiting, diarrhea, and constipation Back: Negative for injury and pain : Negative for injury, bleeding and discharge MS/Extremity: Negative for injury and deformity Skin: Negative for rash, and discoloration Neuro: Negative for headache, weakness, numbness, tingling, and seizure Psych: Negative for suicide ideation, homicidal ideation, and hallucinations Initial Vital Sign VS Vital Signs Date Time Temp Pulse Resp B/P (MAP) Pulse Ox O2 Delivery O2 Flow Rate FiO2 04/18/25 14:38 98.4 70 20 200/107 99 0 Physical Exam Dictation General: awake, alert, NAD Head/Face: Normocephalic, atraumatic Eyes: PERRL, EOMI, vision at baseline ENT: oral cavity clear, TMs clear, no signs of infection Neck: Trachea midline, supple, no nuchal rigidity Cardiovascular: RRR, normal S1/S2, No MRGs, no JVD Respiratory: CTAB, no respiratory distress, No rales or wheezes Abdomen: Soft, non-tender, non-distended, normal bowel sounds, no guarding or rebound. Skin: Warm, dry, normal turgor, no rash MS/Extremity: Pulses equal, no cyanosis, neurovascular intact, FROM Neuro: COAx4, GCS 15, strength 5/5, CN 2-12 intact, normal cerebellar exam, normal gait, Psych: Normal behavior, mood, and affect normal ED Course ED Course Vital Signs Date Time Temp Pulse Resp B/P (MAP) Pulse Ox O2 Delivery O2 Flow Rate FiO2 04/18/25 14:38 98.4 70 20 200/107 99 0 Medical Decision Making MDM MDM: Differential diagnosis: Rationale: Tests considered and ordered secondary to shared decision making in clude: Previous outside records reviewed: Old ER visits. Risk of complication and/or morbidity or mortality of patient management: None Medications-Per medication reconciliation Need for hospitalization: Patient does not meet criteria for hospitalization. Need for emergency major/minor surgery: No There are no social concerns with this patient. Prescription drug management Prescriptions will include symptomatic care Patient's prior external medical records from other ER visits were reviewed by me as indicated. Prior testing and results from previous visits were reviewed. Prior tests were taken into account with medical decision making and resource utilization, independent historian/historians were used to obtain complete medical history. I independently interpreted the test that were performed, results were reviewed by me and considered findings on radiology if ordered. Medical management and examination interpretation discussions were had by me with other qualified healthcare professionals as indicated for the patient's care. 44-year-old female with acute sinusitis change prescriptions given shot of Decadron and prescriptions given for doxycycline. DX & DISP Disposition: Transfer Departure Impression: Primary Impression: Acute sinusitis Condition: Stable Scripts Doxycycline Hyclate (Doxycycline Hyclate) 100 Mg Capsule 1 CAP PO BID for 7 Days, #14 CAP 0 Refills Prov: NATALYA LUNA MD 04/18/25 Referrals: [facility] (PCP) NATALYA LUNA MD Apr 18, 2025 15:26
[2025-04-18] MEDS: dexaMETHasone SOD PHOSPHATE 10MG/ML 1ML VIAL IM ONE (15:41)
[2025-04-18 15:45] VITALS: BP 166/89; PULSE 72; RESP 18; TEMP 98.4; O2SAT 99
== END 2025-04-18 16:12 | disposition home or self-care (01) ==
LOC: EDH 14:34
DX: J01.90 Acute sinusitis, unspecified (principal); Z90.49 Acquired absence of other specified parts of digestive tract; Z98.51 Tubal ligation status; Z79.899 Other long term (current) drug therapy; Z98.890 Other specified postprocedural states
CPT/HCPCS: 99283; 96372; J1100